=== PATIENT | female | born 1985 | race African-American/Black ===

== ENCOUNTER → 2020-07-23 10:12 | Outpatient (CLI) | payer OTHER, SELFPAY ==
[2020-07-23 11:55] LABS: COVID19 -Nasal RAPID Negative (Negative)
== END ==
PROVIDERS: Visit Provider Physician Assistant
DX: Z01.812 Encounter for preprocedural laboratory examination (principal); Z20.822 Contact with and (suspected) exposure to COVID-19
CPT/HCPCS: 87635

== ENCOUNTER 2020-07-25 07:43 | Day surgery (SDC) | payer OTHER, SELFPAY ==
[2020-07-21 11:30] VITALS: BMI 25.3
[2020-07-25] VITALS (11 sets, daily range): BP systolic 109–136; BP diastolic 73–86; PULSE 77–120; RESP 10–17; TEMP 36.5–36.8; O2SAT 97–100; BMI 25.3
[2020-07-25] MEDS: LACTATED RINGERS 1,000 ML 42 ML IV ×2 (09:19→10:46)
--- NOTE | 2020-07-25 09:30 | PM.HP.1 ---
History of Present Illness History of Present Illness Date Patient Seen: 07/25/20 Time Patient Seen: 09:30 Chief complaint: SDC Narrative: The patient is a 35-year-old woman who has had an injury to her right knee. This is an interim history and physical, although details are the same as in the prior history and physical from late May. Patient History Medical History PCOS (polycystic ovarian syndrome) Family & Social History Social History: household members spouse Tobacco & Substance use: Smoking Status Never smoker alcohol intake current alcohol intake frequency holiday/special occasion Substance Use Type does not use Meds Home Medications and Allergies Home Medications Medication Instructions Recorded Confirmed Type letrozole 2.5 mg PO USEASDIRECTD 07/25/20 07/25/20 History Allergies Allergy/AdvReac Type Severity Reaction Status Date / Time salmon oil Allergy Swelling Verified 07/25/20 09:17 of Lip/Tongue/Throat Review of Systems Review of Systems ROS: Yes All systems reviewed with the patient and are negative except as otherwise documented Exam Vital Signs (past 8 hours): - 07/25/20 09:00 Temperature 98.3 F Pulse Rate 77 Respiratory Rate 12 Blood Pressure 109/84 Pulse Oximetry 98 Oxygen Delivery Method Room Air Narrative Exam Narrative: The skin over the right knee is without lesions that would prevent surgery. The remainder of the knee exam is the same as on the prior history and physical. Assessment & Plan Assessment & Plan narrative: Right knee anterior cruciate ligament rupture. The patient has consented to ACL reconstruction with a quadriceps autograft. We once again reviewed the risks benefits and alternatives to surgery today and she updated her consent. COVID-19 COVID-19 status: Negative Result date/Date tested (Pos, Neg/Pending): 07/23/20
--- NOTE | 2020-07-25 10:06 | SUR.PREOP ---
0955 - Dr Pepper at bedside preparing for right adductor canal block. Monitoring initiated and maintained throughout procedure. 0958 - Time out performed. 1003 - Injection time 1005 - Block complete. Pt remained stable throughout procedure. No adverse reactions noted.
[2020-07-25] MEDS: CEFAZOLIN 1 GM VIAL IV (10:15)
--- NOTE | 2020-07-25 10:36 | SUR.OPER ---
Supine on padded OR bed, head on pillow, arms secured on padded arm boards at <90 degrees abduction, legs uncrossed, safety belt at thigh, tape over blanket over lower left leg right leg draped free with arthroscopy brace at right thigh.
[2020-07-25] MEDS: BUPIVACAINE 0.5% (PF) VIAL 30 ML INJ (10:49)
--- NOTE | 2020-07-25 12:03 | P.OP_ITS ---
Operative Date/Time/Diagnoses Date of procedure: 07/25/20 Time of procedure: 12:03 Pre-op diagnosis: Right knee anterior cruciate ligament rupture Post-op diagnosis: same Procedure & Clinicians Procedure: Right anterior cruciate ligament reconstruction with quadriceps autograft Same procedure as scheduled: Yes Indications: The patient is a 35-year-old woman who injured her knee while snowboarding. She has elected to proceed with ACL reconstruction after discussion the risks benefits and alternatives. Risks discussed included but were not limited to: Failure to improve, stiffness, infection, nerve damage, deep venous thrombosis, pulmonary embolism, stroke, myocardial infarction, permanent paralysis, aspiration pneumonia and . Surgeon: Gabriel Lopez [employer]ward[employer] D[employer] Car: Alexandro Ospina Click Yes if Unassisted: No Anesthesia Type: General, Peripheral nerve block and Local Operative Notes Findings: 1. Normal patellofemoral joint 2. Normal medial and lateral gutters 3. Normal medial compartment 4. Complete rupture of the anterior cruciate ligament from the femoral wall of the intercondylar notch. Normal-appearing PCL. 5. Normal-appearing lateral compartment 6. Normal posterolateral compartment 7. Normal posterior medial compartment 8. Normal suprapatellar pouch except for small plica. Closure Type: primary Specimen(s): none sent Prosthetic devices, grafts, tissues, transplants, or devices: Two Arthrex tight rope fixation degree devices 1 with a femoral button the 2nd with a round tibial 14 mm button. Applied: graft(s) and implant(s) Estimated Blood Loss (mL): 50 Blood products transfused: none Tourniquet time (min): 58 Procedure in detail: The patient was seen in the preoperative area where she identified her right knee as the operative site and this was marked with my initials. She received preoperative antibiotics and was taken to the operating room and placed on the operating room table in the supine position. She underwent an abductor canal block and a general anesthetic. Her knee was examined under anesthesia with findings of a grade 3 Jason's and a grade 3 pivot shift. A multimedia manager-out was performed. A tourniquet was placed around the proximal right thigh. Right leg was repaired from the toes to the tourniquet with ChloraPrep in the usual fashion draped through sterile drapes. A superolateral portal was created for the pump cannula. The knee was inflated with arthroscopic fluid. A lateral portal was created for the arthroscope in the knee was diagnostically arthroscoped in standard order with the result given above. During diagnostic arthroscopy, a medial portal was created for the probe and other tools. After confirming that the damage was isolated to the ACL, the arthroscopic equipment was removed, the leg was elevated and exsanguinated with an Esmarch bandage the tourniquet inflated to 250 mmHg. An approximately 7 cm incision was created overlying the superior pole of the patella and going over the midline of the quadriceps tendon. This the central 9 mm of quadriceps tendon was harvested and prepared into a graft. This was done at the back table by my operations assistant. While this was occurring I closed the defect using a running 0 Vicryl. The arthroscope was then reinserted through a lateral portal and the shaver used to remove the ACL remnant. The arthroscope was then moved to the medial portal and the retrograde Reamer guide was placed through the lateral portal in the center of the ACL footprint on the femur. A 9 mm tunnel was drilled to accommodate a 9 mm graft. We then drilled a tibial tunnel of 9 mm over a guide pin in the center of the tibial origin of the ACL. After complete graft preparation, it became evident that the maximum diameter of the graft which would be in the joint would be 10 mm and therefore the tibial tunnel was enlarged to 10 mm. The graft was delivered through the tibial tunnel into the femoral tunnel using a passing suture that had been placed from the retrograde Reamer. The graft was set into the femoral tunnel and the button flipped. The ?tight rope? was then used to pull the graft into position. The leg was then brought into 30? flexion and the tibial fixation placed over the button. This also use the type rope fixation. The sutures from both of the tight ropes were then tied to each other to prevent of loosening in the future. The knee was checked for stability and there was a grade 0 Jason's. The graft was checked for appropriate positioning and there was also no evidence for impingement. The graft harvest wound and the tibial tunnel wounds were closed with subcutaneous 3-0 Vicryl followed by running 4-0 Monocryl. 4-0 Monocryl was also used to close the portals. Steri-Strips were applied. The knee was injected with 20 mL of plain Marcaine for postoperative pain control. Dressings of sterile 4x4s, sterile cast padding and an Angelo wrap were applied. The tourniquet was deflated during closure for a total tourniquet time of 58 minutes. The patient was then transported to the recovery room in good condition having tolerated her procedure well. Complications: none Post-operative Condition: stable Disposition: PACU Plan for aftercare: The patient will be maintained on a standard ACL reconstruction protocol. She will be touchdown weight-bearing on crutches until the block wears off and until she is comfortable bearing weight. She will be discharged today.
[2020-07-25] MEDS: HYDROMORPHONE 2 MG INJ IV (12:07)
[2020-07-25] MEDS: MEPERIDINE 50 MG/ML INJ 12.5 MG IV (12:11)
[2020-07-25] MEDS: OXYCODONE/ACETAMINOPHEN 5/325 TABLET 1 TAB PO ×2 (12:30→13:21)
[2020-07-25] MEDS: OXYCODONE IR 5 MG TABLET PO (12:43)
[2020-07-25] MEDS: hydrOXYzine pamoate 25 MG CAPSULE PO (13:25)
== END 2020-07-25 13:59 | disposition home or self-care (01) ==
PROVIDERS: Referring Provider Orthopaedic Surgery; Visit Provider Orthopaedic Surgery
PROC: (CPT 29888; principal; 2020-07-25 10:15)
DX: S83.511A Sprain of anterior cruciate ligament of right knee, initial encounter (principal); Y93.23 Activity, snow (alpine) (downhill) skiing, snowboarding, sledding, tobogganing and snow tubing
CPT/HCPCS: 29888; J0690; J1100; J1170; J2175; J2405; J2704; J3010

== ENCOUNTER → 2021-10-12 07:20 | Outpatient (CLI) | payer OTHER, SELFPAY ==
--- NOTE | 2021-10-12 07:22 | DI.US.S_ITS ---
PROCEDURE: US PELVIC COMPLETE INDICATIONS: episode of prolonged bleeding, possible endometrial polyp TECHNIQUE: Real-time scanning was performed of the pelvic organs, with image documentation. Additional endovaginal scanning was necessary due to incomplete visualization of the adnexal and endometrial structures by transabdominal scanning. COMPARISON: None. FINDINGS: Uterus: Uterus is anteverted and normal in size at 9.1 x 4.6 x 6.2 cm. The myometrium is homogeneous. The endometrium measures 12 mm combined thickness. No endometrial mass or vascularity visualized. Ovaries: The right ovary measures 5 x 3.1 x 3.6 cm. The left ovary measures 4.7 x 3.4 x 3.5 cm. The ovaries have a normal sonographic appearance. There are greater than 12 subcentimeter follicles in the bilateral ovaries. No adnexal masses are seen. Other: No pathologic free abdominal or pelvic fluid. IMPRESSION: 1. Greater than 12 subcentimeter follicles in the bilateral ovaries. Findings meet the [place] definition of polycystic ovaries. In the absence of ovulatory dysfunction or clinically/biochemically diagnosed hyperandrogenism, findings are non specific and do not indicate the presence of polycystic ovarian syndrome. 2. No other sonographic abnormalities. Specifically, no endometrial mass or vascularity to suggest endometrial polyp. We strive to produce accurate, complete, and clear reports of imaging services. To assist us in improving patient care, this report was composed using standard report templates and voice recognition software. Therefore, it may contain abnormal punctuation, insertions and/or omissions. Occasional wrong-word or sound-alike substitutions may occur. Though we review the report and make efforts to correct it, we do recommend that the report be read carefully in proper context to recognize any text inaccuracies. Dictated by: Lindy Valencia M.D. on 10/12/2021 at 12:43 Approved by: Lindy Valencia M.D. on 10/12/2021 at 12:46
== END ==
PROVIDERS: Referring Provider Obstetrics & Gynecology; Visit Provider Obstetrics & Gynecology
DX: N93.9 Abnormal uterine and vaginal bleeding, unspecified (principal); E28.2 Polycystic ovarian syndrome
CPT/HCPCS: 76830; 76856

== ENCOUNTER → 2022-06-18 12:07 | Outpatient (CLI) | payer OTHER, SELFPAY ==
[2022-06-18 14:47] LABS: Urine N gonorrhoeae NOT DETECTED
[2022-06-18 14:51] LABS: Urine Chlamydia NOT DETECTED
== END ==
PROVIDERS: Visit Provider Specialist
DX: Z34.81 Encounter for supervision of other normal pregnancy, first trimester (principal); Z3A.01 Less than 8 weeks gestation of pregnancy
CPT/HCPCS: 87491; 87591

== ENCOUNTER → 2022-07-17 07:51 | Outpatient (CLI) | payer OTHER, SELFPAY ==
[2022-07-17 08:39] LABS: Add Manual Diff / Slide Review NO; Basophils Absolute Auto 0 /uL (0-100); Basophils Percent Auto 0.3 % (0-2); Eosinophils Absolute Auto 200 /uL (0-450); Eosinophils Percent Auto 2.1 % (2-4); Hematocrit 33.8 % (36-46); Hemoglobin 11.2 g/dL (12.0-16.0); Lymphocytes Absolute Auto 1300 /uL (1100-4500); Lymphocytes Percent Auto 13.8 % (25-40); Mean Corpuscular HGB Conc 33.2 % (30-36); Mean Corpuscular Hemoglobin 20.3 PG (26-34); Monocytes Absolute Auto 700 /uL (0-900); Monocytes Percent Auto 7.6 % (3-14); Neutrophils Absolute Auto 7400 /uL (1500-7000); Neutrophils Percent Auto 76.2 % (50-75); Platelet Count 220 X10^3/uL (150-400); Red Blood Cell Count 5.54 X10^6/uL (4.0-5.2); Red Cell Distribution Width 18.2 % (11.6-14.8); White Blood Cell Count 9.7 X10^3/uL (4.5-11.0)
[2022-07-17 09:09] LABS: Anisocytosis 2+; Microcytosis 3+
[2022-07-17 15:25] LABS: Hepatitis B Surface Antigen NEGATIVE s/c (NEGATIVE)
[2022-07-17 15:34] LABS: HIV 1 & 2 Ab/Ag 4th Gen Combo NEGATIVE (NEGATIVE); Hep C Virus Ab w/Reflex Quant NEGATIVE s/c (NEGATIVE)
[2022-07-18 03:14] LABS: RPR Screen Non Reactive (Non Reactive)
[2022-07-18 09:02] LABS: Varicella IgG Antibody 2293 index (Immune >165)
[2022-07-18 09:24] LABS: HEMOLYSIS < 15 (0-50); Iron 42 ug/dL (37-170)
[2022-07-18 09:35] LABS: Percent Iron Saturation 8 % (15-50); Total Iron Binding Capacity 551 ug/dL (265-497); Transferrin 434 mg/dL (206-381)
== END ==
PROVIDERS: Referring Provider Obstetrics & Gynecology; Visit Provider Obstetrics & Gynecology
DX: Z34.81 Encounter for supervision of other normal pregnancy, first trimester (principal); D64.9 Anemia, unspecified
CPT/HCPCS: 36415; 80055; 83540; 83550; 86787; 86803; 86850; 86900; 86901; 87086; 87389

== ENCOUNTER 2022-07-30 07:44 | Day surgery (SDC) | payer OTHER, SELFPAY ==
[2022-07-30 08:11] VITALS: BP 131/82; PULSE 90; RESP 18; TEMP 36.5; O2SAT 100; BMI 30.8
[2022-07-30 08:23] VITALS: BMI 30.8
[2022-07-30] MEDS: LACTATED RINGERS 1,000 ML 100 ML IV (08:29)
--- NOTE | 2022-07-30 09:27 | P.HPOB_ITS ---
History of Present Illness History of Present Illness Reason for admission: other (Cerclage placement) Narrative: Nolberto Gee is a 37 year old female 2 para 0101 who presents for a [place] cervical cerclage due to an incompetent cervix. Patient had a 25 week delivery 18 months ago which they felt was due to an incompetent cervix. PENDING SALE TO [facility] Medical History (Updated 06/18/22 @ 12:25 by Norma Sandoval MD) Abnormal Pap smear of cervix (~2013) Abnormal uterine bleeding (AUB) Anemia (~2020) Heavy menstrual period Human papilloma virus (~2015) Incompetent cervix Infertility Irregular menstrual cycle PCOS (polycystic ovarian syndrome) (~2009) delivery Uterine polyp (~2021) Surgical History (Updated 06/18/22 @ 12:25 by Norma Sandoval MD) Anesthesia H/O LEEP History of section (~01/2021) History of knee surgery (~07/2020) Family History (Updated 06/07/22 @ 08:42 by Makayla Miner RN) Father Hypertension Mother Ovarian cancer Daughter Premature Sister Dermoid cyst of ovary H/O bilateral oophorectomy Grandfather Diabetes mellitus Hypertension Grandmother Diabetes mellitus Hypertension Grandfather Cancer Social History marital status: number of children: 2 (includes 1 teenage foreign exchange student (going home in July)) household members: spouse and children lives independently: Yes caregiver/support person: Yes housing: [facility] pets and animals: Yes (1 small dog) education level: master's degree occupational status: employed current occupational exposures/hazards: No chayito/protestant: Pentecostalism special chayito needs: No travel history: recent ([facility] and [facility] only) seatbelt use: always water heater temp set < 120 deg: No working smoke detector in home: Yes fire extinguisher in home: Yes carbon monox detector in home: Yes firearms in home: Yes firearms unloaded and locked: Yes do you feel safe at home: Yes Smoking Status: Never smoker second hand exposure: Yes alcohol intake: former substance use type: does not use during the past year weight has: remained stable well-balanced diet: about half the time daily servings fruits/ve-4 caffeine: Yes (double shot latte in AM) Type(s) of exercise: walking frequency: 1-2 times per week Meds Home Medications and Allergies Home Medications Medication Instructions Recorded Confirmed Type prenat.vits,del,ssq-theg-vgcui 1 tab PO DAILY 06/07/22 07/30/22 History diphenhydramine HCl 50 mg capsule 50 mg PO BEDTIME PRN Sleep 07/30/22 07/30/22 History ([employer] SleepGels) Allergies Allergy/AdvReac Type Severity Reaction Status Date / Time salmon oil Allergy Swelling Verified 07/30/22 08:20 of Lip/Tongue/Throat Exam Vital Signs (past 8 hours): - 07/30/22 08:11 Temperature 97.7 F Pulse Rate 90 Respiratory Rate 18 Blood Pressure 131/82 Pulse Oximetry 100 Oxygen Delivery Method Room Air Oxygen Delivery Method Room Air Narrative Exam Narrative: HEENT: No thyromegaly, no anterior cervical or supraclavicular lymphadenopathy. Lungs:Clear to auscultation bilaterally, no wheezes. Cardiovascular: Regular rate and rhythm, no murmurs, rubs, or gallops. Abdomen: No scars. No hepatosplenomegaly. No masses palpable. External genitalia: Normal Vagina: Normal Cervix: Normal Bimanual exam: 13 Week size uterus. Extremities: No edema Assessment & Plan Assessment & Plan narrative: Assessment: 37-year-old 2 para 0101 with an incompetent cervix 13 weeks' gestation Plan: [place] cervical cerclage The risks, benefits, and alternatives to the procedure were explained to the patient. The risks including bleeding, infection, and rupture of membranes. She understands these risks and agrees to proceed. A full par Q was held and consent form was signed. Time Spent With Patient Time with patient: less than 30 minutes
--- NOTE | 2022-07-30 09:29 | PM.PREOP ---
Pre-operative Note COVID-19 Criteria for continued procedure: Non-surgical alternatives not available or appropriate per current SOC Interval Note History & Physical reviewed/Exam performed by Physician: Yes Changes to H&P: No H&P completed within 30 days and has changed as indicated here:: 07/30/22
[2022-07-30] MEDS: CEFAZOLIN 2 GM/100 ML PREMIX 100 ML IV (09:45)
--- NOTE | 2022-07-30 09:56 | SUR.OPER ---
Lithotomy on padded OR bed, head on pillow, arms secured on padded arm boards at <90 degrees abduction. Legs secured in padded yellow fins stirrups.
--- NOTE | 2022-07-30 10:15 | PM.GYNOP.1 ---
Operative Date/Time/Diagnoses Date of procedure: 07/30/22 Time of procedure: 10:15 Pre-op diagnosis: Incompetent cervix 13 weeks gestation Post-op diagnosis: same Procedure & Clinicians Procedure: Procedures Operation Date: 07/30/22 09:45 Actual Procedure Side Surgeon li MÁRQUEZ CERVICAL CERCLAGE Sally Irwin MD Indications: Incompetent cervix Surgeon: Sally Irwin Anesthesia Type: MAC +/- Operative Notes Findings: Cervix 3.5 cm long Closure Type: not applicable Specimen(s): none Applied: other (Mersilene suture at 12 o'clock) Estimated blood loss (mL): 10 Procedure in detail: After informed consent was obtained, the patient was taken to the operating room where she was placed in the dorsal supine position. After adequate sedation, she was placed in the dorsal lithotomy position, and prepped and draped in the usual sterile fashion. A time-out was performed. A weighted speculum was placed into the vagina. Ring forceps were placed on the anterior and posterior cervix. Patient was placed into steep Trendelenburg. Using 5 mm Mersilene suture, a pursestring suture was placed around the cervix and tied at 12 o'clock. with 5 knots. The weighted speculum was removed from the vagina. Sponge, lap, and instrument counts were correct x2. The patient tolerated the procedure well, and was taken to PACU in stable condition. Complications: none Post-operative Condition: stable Disposition: PACU Plan for aftercare: Home after recovery
[2022-07-30 10:16] VITALS: BP 98/58; PULSE 108; RESP 17; TEMP 36.4; O2SAT 91
[2022-07-30 10:21] VITALS: BP 109/70; PULSE 96; RESP 16; O2SAT 97
[2022-07-30 10:26] VITALS: BP 108/69; PULSE 94; RESP 16; O2SAT 98
[2022-07-30 10:31] VITALS: BP 114/79; PULSE 102; RESP 12; TEMP 36.6; O2SAT 99
[2022-07-30 10:40] VITALS: BP 118/83; PULSE 94; RESP 18; O2SAT 94
--- NOTE | 2022-07-30 10:43 | SUR.PHASEI ---
ANGIE Charles from at PACU bedside to check heat tones which were 138 BPM.
== END 2022-07-30 11:14 | disposition home or self-care (01) ==
PROVIDERS: Referring Provider Obstetrics & Gynecology; Visit Provider Obstetrics & Gynecology
PROC: 0UVC7ZZ Restriction of Cervix, Via Natural or Artificial Opening (ICD-10-PCS; CPT 57700; principal; 2022-07-30 09:45)
DX: O34.31 Maternal care for cervical incompetence, first trimester (principal); Z3A.13 13 weeks gestation of pregnancy
CPT/HCPCS: 59320; J0690; J1100; J1885; J2250; J2405; J2704; J3010

== ENCOUNTER → 2022-08-07 09:07 | Outpatient (CLI) | payer OTHER, SELFPAY ==
[2022-08-07 12:43] LABS: Miscellaneous to LabCorp Natera test
== END ==
PROVIDERS: Referring Provider Obstetrics & Gynecology; Visit Provider Obstetrics & Gynecology
DX: O09.521 Supervision of elderly multigravida, first trimester (principal); Z34.82 Encounter for supervision of other normal pregnancy, second trimester; Z3A.14 14 weeks gestation of pregnancy; Z34.92 Encounter for supervision of normal pregnancy, unspecified, second trimester
CPT/HCPCS: 36415; 87086

== ENCOUNTER → 2022-08-23 16:22 | Outpatient (CLI) | payer OTHER, SELFPAY ==
[2022-08-25 08:39] LABS: Labcorp Hemoglobin (Hb) A1c 5.9 % (4.8-5.6)
[2022-08-27 14:47] LABS: AFP Value 29.6 ng/mL (.); Gest Age on Col Date 16.6 weeks (.); Insulin Dep Diabetes No (.); OSBR Risk 1IN 10000 (.); Results Report (.); Test Results *Screen Negative* (.)
== END ==
PROVIDERS: Specialist; Referring Provider Obstetrics & Gynecology; Visit Provider Obstetrics & Gynecology
DX: Z34.82 Encounter for supervision of other normal pregnancy, second trimester (principal); Z3A.16 16 weeks gestation of pregnancy
CPT/HCPCS: 36415; 82105; 83036